=== PATIENT | male | born 1960 | race Caucasian/White ===

== ENCOUNTER 2017-07-05 11:36 | Day surgery (SDC) | payer OTHER, SELFPAY ==
[2017-06-08 08:52] VITALS: TEMP 36.6
[2017-07-03 16:09] VITALS: BMI 32.1
[2017-07-05 12:40] VITALS: BP 110/73; PULSE 74; RESP 16; TEMP 36.6; O2SAT 94
[2017-07-05] MEDS: LACTATED RINGERS 1,000 ML 200 ML IV (12:51)
--- NOTE | 2017-07-05 13:47 | SUR.PREOP ---
Addendum entered by Vicente Yeboah R.N. 07/05/17 13:56: Discharged at 1340 accompanied by . Original Note: Due to another emergent surgery attended to by Dr Borges, case cancelled. IV discontinued and patient discharged with instructions to go to surgeon's office here at the hospital to reschedule for the beginning of the coming week.
--- NOTE | 2017-07-05 13:59 | SUR.PHASEII ---
See preoperative area notes regarding discharge home.
--- NOTE | 2017-07-09 10:40 | PM.PREOP ---
Pre-operative Note Interval Note Pre-op Check: History & Physical Reviewed by Physician and Exam Performed H&P completed within 30 days and has changed as indicated here:: no change
--- NOTE | 2017-07-09 12:38 | PM.OP.1 ---
Operative Date/Time/Diagnoses - Date of procedure: 07/09/17 Time of procedure: 12:30 Pre-op diagnosis: Cholelithiasis cholecystitis Post-op diagnosis: same Procedure & Clinicians Procedure: Laparoscopic cholecystectomy Same procedure as scheduled: Yes Indications: Symptomatic gallbladder disease. Surgeon: Silver Borges Click Yes if Unassisted: Yes Anesthesia Type: General Operative Notes Findings: Mild flimsy adhesions of omentum to the gallbladder. Normal caliber ducts. Minimal inflammation. Closure Type: primary Specimen(s): other (Gallbladder) Implants & Drains: None Estimated Blood Loss (mL): 20 Procedure in detail: The patient is placed supine on the operating table and underwent general endotracheal anesthesia. He was prepped and draped in the usual fashion. Local anesthetic was infiltrated in the infraumbilical fold. Incision was made here and carried down under direct vision into the peritoneal cavity. Stay sutures of 0 Polysorb were placed in the fascia. An Augustin cannula was inserted. The abdomen was insufflated. The patient was repositioned and 3 additional ports were placed under the right costal margin. The gallbladder was identified grasped and elevated after aspirating it as it was somewhat distended with bile. The bile was green and no evidence of infection. Dissection was begun by removing the adhesions to the surface of the gallbladder. The end of the gallbladder was identified and dissection continued there. A ductal structure singular nature going directly the gallbladder was identified and from surrounding structures. Three clips were placed across the was divided leaving 2 on the patient. In a similar fashion the artery was identified clipped and divided. There was 1 other small area of tissue that could have contained a vessel. I placed 2 clips on it and divided it leaving 1 in the patient. The gallbladder is then dissected from its bed the liver using cautery. It was detached placed in a bag and removed without difficulty through the umbilical port. The right upper quadrant irrigated suctioned free of fluid and meticulous hemostasis achieved. The ports were all removed after evacuating the air. Stay sutures were tied after placing a 2 0 Maxon between them. The wounds were all irrigated and 4 0 Polysorb was used to close the skin with interrupted subcuticular stitches. Mastisol and Steri-Strips were applied. The patient was awakened and extubated and taken to recovery area in good condition. Complications: none Condition: stable Disposition: PACU Plan for aftercare: Follow-up in the office. SCOAP protocol was followed.
[2017-07-09 13:25] VITALS: BP 123/84; PULSE 76; RESP 16; TEMP 36.3; O2SAT 93
== END 2017-07-05 13:40 | disposition home or self-care (01) ==
PROVIDERS: Family Provider Family Medicine; PCP Family Medicine; Visit Provider Specialist

== ENCOUNTER 2017-07-09 08:57 | Day surgery (SDC) | payer OTHER, SELFPAY ==
--- NOTE | 2017-07-09 | PATH_ITS ---
[facility] Accession Number: [id number] . 01 Material submitted: . GALLBLADDER . 02 Diagnosis: Gallbladder, Cholecystectomy: Chronic cholecystitis with cholelithiasis. No evidence of dysplasia or malignancy. [facility]/07/12/2017 . 02 Electronically signed: . Mirela Santos MD, Pathologist NPI- [id number] . 01 Gross description: . Received in formalin, labeled 1) Gallbladder, is an intact gallbladder (length-7.2 cm, diameter-3.0 cm) with blue-green smooth and shiny serosa and a patent cystic duct. No lymph nodes are identified. The lumen contains clear watery bile and multiple dark green gritty friable calculi (1.2 x 0.6 x 0.2 cm in aggregate). The mucosa is green smooth and semi-velvety. The wall is up to 0.1 cm thick. No nodules, masses or lesions are identified. Section code: (A1) cystic duct resection margin and two serial sections from the body; (A2) two longitudinal sections from the fundus. ([id number]) /[facility] . 02 Pathologist provided ICD-10: K80.60 . 02 CPT . 142266 Performed at: 01 [facility] [address], [place], [place] [id number] MD Bhanu Julian MD Phone: [phone] Performed at: 02 [facility] [address] [place], [place] [id number] MD Sohail Baez MD Phone: [phone]
[2017-07-09 09:33] VITALS: BMI 30.4
[2017-07-09 09:45] VITALS: BP 120/80; PULSE 75; RESP 16; TEMP 36.8; O2SAT 96
[2017-07-09] MEDS: LACTATED RINGERS 1,000 ML 100 ML IV ×2 (09:46→11:43)
[2017-07-09 10:02] VITALS: BMI 30.4
[2017-07-09] MEDS: CEFAZOLIN 2 GM/100 ML FROZ.PIGGY IV (10:55)
--- NOTE | 2017-07-09 11:34 | SUR.OPER ---
Supine on padded OR bed, head on pillow, arm padded and tucked at side, legs uncrossed, safety belt at thigh, tape over blanket over lower legs .
[2017-07-09] MEDS: BUPIVACAINE 0.5% (PF) 30 ML VIAL INJ (11:45)
[2017-07-09 12:24] VITALS: BP 144/90; PULSE 85; RESP 16; TEMP 36.2
[2017-07-09 12:29] VITALS: BP 133/89; PULSE 75; RESP 14
[2017-07-09 12:34] VITALS: BP 118/80; PULSE 71; RESP 13; O2SAT 96
[2017-07-09 12:44] VITALS: BP 127/79; PULSE 74; RESP 14
[2017-07-09 13:09] VITALS: BP 126/78; PULSE 76; RESP 16; TEMP 36.6; O2SAT 96
== END 2017-07-09 13:24 | disposition home or self-care (01) ==
PROVIDERS: Family Provider Family Medicine; PCP Family Medicine; Visit Provider Specialist
PROC: 0FT44ZZ Resection of Gallbladder, Percutaneous Endoscopic Approach (ICD-10-PCS; CPT 47562; principal; 2017-07-09 10:15)
DX: K80.10 Calculus of gallbladder with chronic cholecystitis without obstruction (principal)
CPT/HCPCS: 47562; J0330; J0690; J1100; J2405; J2704; J3010

== ENCOUNTER → 2017-08-23 12:28 | Day surgery (SDC) | payer OTHER, SELFPAY ==
[2017-08-22 15:13] VITALS: BMI 32.0
[2017-08-23 12:59] VITALS: BP 114/76; PULSE 78; RESP 15; TEMP 36.1; O2SAT 96; BMI 31.0
[2017-08-23] MEDS: LACTATED RINGERS 1,000 ML 42 ML IV (13:12)
--- NOTE | 2017-08-23 14:14 | PM.HP.1 ---
History of Present Illness Date Patient Seen: 08/23/17 Time Patient Seen: 14:14 Chief complaint: [id number] BILATERAL INGUINAL HERNIA REPAIRS Narrative: Patient came in for bilateral inguinal hernia repair. He had actually called the office yesterday to schedule this but failed to inform us he had a respiratory tract infection and he had a tooth abscess presently under treatment. Patient History Medical History Bruises easily (Acute) Carpal tunnel syndrome (Acute) Cholelithiasis (Acute) Cough (Acute) Foot pain (Acute) History of UTI (Acute) History of headache (Acute) Inguinal hernia (Acute) BPH (benign prostatic hyperplasia) (Chronic) Hyperlipidemia (Chronic) Hypertension (Chronic) Impaired vision (Chronic) Migraine (Chronic) Murmur (Chronic) Nocturia (Chronic) Obese (Chronic) Obstructive sleep apnea (Chronic) PFO (patent foramen ovale) (Chronic) Ureteral obstruction (Chronic) Urinary frequency (Chronic) Urinary urgency (Chronic) Cardiomyopathy (Resolved) Gallbladder disease (Resolved) Right inguinal hernia (Resolved) Skin cancer (Resolved) Status post left heart catheterization (Resolved) Hemorrhoids (Inactive) Laryngopharyngeal reflux (LPR) (Inactive) Surgical History History of carpal tunnel release (Resolved) History of laryngoscopy (Resolved) Family & Social History Social History: household members spouse lives independently Yes Tobacco & Substance use: Smoking Status Never smoker alcohol intake current alcohol intake frequency 0-2 drinks per day Substance Use Type does not use Meds Home Medications Medication Instructions Recorded Confirmed Type carvedilol [Coreg] 25 mg PO BID #0 06/12/16 08/23/17 History eplerenone 25 mg PO #0 06/12/16 07/25/17 History atorvastatin [Lipitor] 10 mg PO HS #90 tab 02/13/17 08/23/17 Rx ramipril 10 mg PO QDAY #30 cap 04/20/17 08/23/17 Rx aspirin 81 mg PO QDAY #0 04/27/17 08/23/17 History duloxetine 60 mg capsule,delayed 60 mg PO QDAY #90 cap 06/07/17 08/23/17 Rx release esomeprazole magnesium 40 mg 40 mg PO BID #0 cap 06/08/17 08/23/17 History capsule,delayed release sumatriptan 100 mg tablet 100 mg PO Q DAY PRN #30 tab 06/11/17 08/23/17 Rx sildenafil [Viagra] 100 mg PO DAILY PRN 05/29/18 06/20/18 History Calcium 500 500 mg PO BID 07/05/17 08/23/17 History tolterodine 2 mg tablet 2 mg PO BID #180 tab 08/14/17 08/23/17 Rx Allergies Allergy/AdvReac Type Severity Reaction Status Date / Time hydrocodone [HYDROCODONE] Allergy Unknown Nausea Verified 08/23/17 12:51 ibuprofen Allergy Unknown Nausea Verified 08/23/17 12:51 Exam Vital Signs (past 8 hours): - 08/23/17 12:59 Temperature 96.9 F L Pulse Rate 78 Respiratory Rate 15 Blood Pressure 114/76 Pulse Oximetry 96 Oxygen Delivery Method Room Air Assessment & Plan Plan: Assessment/Plan Narrative: Operation is canceled. I do not want a risk putting him to sleep or seeding his mesh from his tooth abscess. When he is over these problems and he should call the office and we will reschedule him.
--- NOTE | 2017-08-23 14:22 | SUR.PREOP ---
PT SURGERY CANCELLED DUE TO CURRENT ANTIBIOTIC USE FOR TOOTH INFECTION. PT IV DC'D AND INTACT. PT TOLERATED WELL. PT WALKED OUT OF PREOP WITH IN STABLE CONDITION. PT INSTRUCTED SURGERY WILL NEED TO BE RESCHEDULED AFTER COMPLETION OF ANTIBIOTIC USE AND INFECTION IS NO LONGER PRESENT. PT INSTRUCTED TO CALL MD OFFICE TO RESCHEDULE. PT VOICED UNDERSTANDING.
== END ==
PROVIDERS: Family Provider Family Medicine; PCP Family Medicine; Visit Provider Specialist

== ENCOUNTER 2017-10-18 06:19 | Day surgery (SDC) | payer OTHER, SELFPAY ==
[2017-10-18] VITALS (7 sets, daily range): BP systolic 98–112; BP diastolic 68–81; PULSE 74–93; RESP 10–16; TEMP 36–36.9; O2SAT 92–94; BMI 30.7
[2017-10-18] MEDS: LACTATED RINGERS 1,000 ML 42 ML IV ×2 (07:27→10:07)
--- NOTE | 2017-10-18 07:45 | PM.HP.1 ---
History of Present Illness Date Patient Seen: 10/18/17 Time Patient Seen: 07:40 Chief complaint: [id number] BILATERAL INGUINAL HERNIA REPAIR Narrative: Repairs Patient here for bilateral inguinal hernia Patient History Medical History Bruises easily (Acute) Carpal tunnel syndrome (Acute) Cholelithiasis (Acute) Cough (Acute) Foot pain (Acute) History of URI (upper respiratory infection) (Acute) History of UTI (Acute) History of abscessed tooth (Acute) History of headache (Acute) Inguinal hernia (Acute) BPH (benign prostatic hyperplasia) (Chronic) Hyperlipidemia (Chronic) Hypertension (Chronic) Impaired vision (Chronic) Migraine (Chronic) Murmur (Chronic) Nocturia (Chronic) Obese (Chronic) Obstructive sleep apnea (Chronic) PFO (patent foramen ovale) (Chronic) Ureteral obstruction (Chronic) Urinary frequency (Chronic) Urinary urgency (Chronic) Cardiomyopathy (Resolved) Gallbladder disease (Resolved) Right inguinal hernia (Resolved) Skin cancer (Resolved) Status post left heart catheterization (Resolved) Hemorrhoids (Inactive) Laryngopharyngeal reflux (LPR) (Inactive) Surgical History History of laparoscopic cholecystectomy (Acute) History of carpal tunnel release (Resolved) History of laryngoscopy (Resolved) Family & Social History Family History: Reviewed 10/18/17 by Silver Borges MD Social History: household members spouse lives independently Yes Tobacco & Substance use: Smoking Status Never smoker alcohol intake current alcohol intake frequency 0-2 drinks per day Substance Use Type does not use Meds Home Medications Medication Instructions Recorded Confirmed Type carvedilol [Coreg] 25 mg PO BID #0 06/12/16 10/18/17 History eplerenone 25 mg PO #0 06/12/16 07/25/17 History atorvastatin [Lipitor] 10 mg PO HS #90 tab 02/13/17 10/18/17 Rx ramipril 10 mg PO QDAY #30 cap 04/20/17 10/18/17 Rx aspirin 81 mg PO QDAY #0 04/27/17 10/18/17 History duloxetine 60 mg capsule,delayed 60 mg PO QDAY #90 cap 06/07/17 10/18/17 Rx release esomeprazole magnesium 40 mg 40 mg PO BID #0 cap 06/08/17 10/18/17 History capsule,delayed release sumatriptan 100 mg tablet 100 mg PO Q DAY PRN #30 tab 06/11/17 10/18/17 Rx sildenafil [Viagra] 100 mg PO DAILY PRN 07/03/17 10/01/17 History Calcium 500 500 mg PO BID 07/05/17 10/01/17 History tolterodine 2 mg tablet 2 mg PO BID #180 tab 08/14/17 10/18/17 Rx Allergies Allergy/AdvReac Type Severity Reaction Status Date / Time hydrocodone [HYDROCODONE] Allergy Unknown Nausea Verified 08/23/17 12:51 ibuprofen Allergy Unknown Nausea Verified 08/23/17 12:51 Review of Systems Review of Systems All systems reviewed & are unremarkable except as noted in HPI and below Exam Vital Signs (past 8 hours): - 10/18/17 07:18 Temperature 96.8 F L Pulse Rate 74 Respiratory Rate 15 Blood Pressure 104/70 Pulse Oximetry 94 Oxygen Delivery Method Room Air Narrative Exam Narrative: Obese gentleman no apparent distress. Alert and oriented x3. Lungs are clear to auscultation no rales or rhonchi. Heart regular rate and rhythm without murmur gallop. Abdomen is soft protuberant nontender without mass. He has bilateral inguinal hernias that are reducible. Assessment & Plan Plan: Assessment/Plan Narrative: I have discussed the operations with him. Risks of bleeding, infection, injury to the nerves in the area causing chronic pain or numbness, injury to the vas deferens injury to testicular blood supply recurrence all discussed with him. He appears to understand and wishes to proceed. Also discussed postoperative restrictions.
--- NOTE | 2017-10-18 07:48 | PM.PREOP ---
Pre-operative Note Interval Note Pre-op Check: Yes History & Physical exam performed today by Physician Changes: No
[2017-10-18] MEDS: CEFAZOLIN VIAL 3 GM in SODIUM CHLORIDE 0.9% 100 ML 200 ML IV (07:59)
--- NOTE | 2017-10-18 07:59 | SUR.PREOP ---
glucose finger stick not done because orders written after patient left for or
--- NOTE | 2017-10-18 08:38 | SUR.OPER ---
Supine on padded OR bed, head on pillow, arms secured on padded arm boards at <90 degrees abduction, legs uncrossed, safety belt at thigh, tape over blanket over lower legs.
[2017-10-18] MEDS: BUPIVACAINE 0.5% (PF) VIAL 30 ML INJ (08:48)
--- NOTE | 2017-10-18 10:41 | PM.OP.1 ---
Operative Date/Time/Diagnoses Date of procedure: 10/18/17 Time of procedure: 10:20 Pre-op diagnosis: Bilateral inguinal hernia. Reducible. Post-op diagnosis: same (Direct hernias.) Procedure & Clinicians Procedure: Repair bilateral inguinal hernias with plug and patch technique Same procedure as scheduled: Yes Indications: Symptomatic hernia Surgeon: Silver Borges Click Yes if Unassisted: Yes Anesthesia Type: General Operative Notes Findings: Right-sided defect obliterated the floor and may have contained bladder. Left side was preperitoneal fat which obliterated the floor. Closure Type: primary Specimen(s): none sent Implants & Drains: Mesh Estimated Blood Loss (mL): 20 Blood products transfused: none Procedure in detail: The patient was placed supine on the operating room table and underwent general LMA anesthesia. He was prepped and draped in the usual fashion. Local anesthetic was infiltrated. A transverse incision was made overlying the internal ring on the left and carried down to the level of the external oblique. The external oblique was opened parallel with its fibers through the external ring. The cord structures were elevated. The cremaster was opened proximally and search made for an indirect sac.[none was found]. The floor was examined and was found to be[pretty much obliterated. There was obvious protrusion of fat through it and I opened this attenuated floor and reduced the fat. I placed a large plug in and tacked it into place with interrupted 0 Tycron sutures. I then chose to close the floor performing what essentially would of been a ileopubic tract repair suturing medial transversalis to the ileopubic tract and just catching the edge of the inguinal ligament. This did not appear to put any tension on the rectus. That is probably to the patient's size in any event this closed the floor over which I put a patch.]. The patch was placed across the floor and tacked at the pubic tubercle, the posterior lamella of the anterior rectus sheath, the ilioinguinal ligament, and superior lateral to the cord. The cord structures did not appear to have any tight constriction. Sutures of 0 Tycron were used to secure the mesh. The external oblique was closed with a running 3 0 Polysorb. The subcu was closed with interrupted 3 0 Polysorb. The skin was closed with a running 4 0 Polysorb subcuticular stitch. Attention was turned to the right side. A mirror incision and identical procedure was undertaken. The findings were slightly different in that there was again no indirect sac and the floor was once again attenuated an obliterated by preperitoneal structures been on this side the structure appeared to possibly be bladder and therefore I did not open it but simply reduced it. The operation was otherwise identical in occluding the use of mesh and the closure. The floor was also repaired in the same fashion as the opposite side. Once the wounds were both closed the were cleaned and Mastisol and Steri-Strips and dressing applied. The testes were pulled down and the patient was awakened and taken recovery room good condition. Complications: none Condition: stable Disposition: PACU Plan for aftercare: Patient has follow-up appointment
== END 2017-10-18 11:19 | disposition home or self-care (01) ==
PROVIDERS: Family Provider Family Medicine; PCP Family Medicine; Visit Provider Specialist
PROC: (CPT 49505; principal; 2017-10-18 07:45)
DX: K40.20 Bilateral inguinal hernia, without obstruction or gangrene, not specified as recurrent (principal); I10 Essential (primary) hypertension
CPT/HCPCS: 49505; C1781; J0690; J1100; J1170; J2405; J2704

== ENCOUNTER → 2017-11-23 08:45 | Outpatient (CLI) | payer OTHER, SELFPAY ==
[2017-11-23 09:06] LABS: Add Manual Diff / Slide Review NO; Basophils Percent Auto 1.2 % (0-2); Eosinophils Percent Auto 3.6 % (2-4); Hematocrit 41.7 % (41-53); Hemoglobin 14.4 g/dL (13.5-17.5); Lymphocytes Percent Auto 29.4 % (25-40); Mean Corpuscular HGB Conc 34.5 % (30-36); Mean Corpuscular Hemoglobin 30.5 PG (26-34); Mean Corpuscular Volume 88.3 fL (80-100); Monocytes Percent Auto 10.6 % (3-14); Neutrophils Absolute Auto 3300 /uL (3000-5900); Neutrophils Percent Auto 55.2 % (50-75); Platelet Count 155 X10^3/uL (150-400); Red Blood Cell Count 4.72 X10^6/uL (4.5-5.9); Red Cell Distribution Width 13.4 % (11.6-14.8); White Blood Cell Count 5.9 X10^3/uL (4.5-11.0)
[2017-11-23 09:27] LABS: Alanine Aminotransferase 32 IU/L (21-72); Albumin 4.1 g/dL (3.5-5.0); Albumin Globulin Ratio 1.4 (1.0-2.8); Alkaline Phosphatase 61 U/L (38-126); Aspartate Aminotransferase 19 IU/L (17-59); Bilirubin Total 0.6 mg/dL (0.2-1.3); Blood Urea Nitrogen 12 mg/dL (9-20); Calcium 8.7 mg/dL (8.4-10.2); Carbon Dioxide 33 mmol/L (22-32); Chloride 102 mmol/L (98-107); Cholesterol 115 mg/dL (140-199); Estimated Glomerular Filt Rate > 60.0 mL/min (>60); Globulin 2.9 g/dL (1.7-4.1); Glucose 104 mg/dL (70-100); HDL Cholesterol 41 mg/dL (40-60); HEMOLYSIS < 15 (0-50); LDL Cholesterol Calculated 60 mg/dL (<100); Potassium 4.2 mmol/L (3.4-5.1); Sodium 143 mmol/L (137-145); Triglycerides 71 mg/dL (35-150)
[2017-11-23 09:30] LABS: Appearance Urine UA CLEAR; Bilirubin Urine UA NEGATIVE (NEGATIVE); Color Urine UA YELLOW; Glucose Urine UA NEGATIVE (Normal); Ketones Urine UA NEGATIVE (NEGATIVE); Leukocyte Esterase Urine UA NEGATIVE (NEGATIVE); Nitrite Urine UA NEGATIVE (Negative); Occult Blood Urine UA NEGATIVE (Negative); Protein Urine UA NEGATIVE (Negative); Urobilinogen Urine UA 0.2 E.U./dL (0.2)
[2017-11-23 10:09] LABS: Thyroid Stimulating Hormone 1.41 uIU/mL (0.47-4.68)
== END ==
PROVIDERS: PCP Family Medicine; Visit Provider Family Medicine
DX: E78.2 Mixed hyperlipidemia (principal); I10 Essential (primary) hypertension; Z00.00 Encounter for general adult medical examination without abnormal findings
CPT/HCPCS: 36415; 80053; 80061; 81003; 84443; 85025

== ENCOUNTER → 2018-01-03 10:13 | Outpatient (CLI) | payer OTHER, SELFPAY ==
[2018-01-03 10:22] LABS: RBC Urine None Seen (0-5/HPF)
[2018-01-03 10:52] LABS: Bilirubin Urine UA NEGATIVE (NEGATIVE); Color Urine UA YELLOW; Glucose Urine UA NEGATIVE (Normal); Ketones Urine UA NEGATIVE (NEGATIVE); Leukocyte Esterase Urine UA TRACE (NEGATIVE); Nitrite Urine UA POSITIVE (Negative); Occult Blood Urine UA TRACE-LYSED (Negative); Protein Urine UA NEGATIVE (Negative); Specific Gravity Urine UA 1.025 (1.000-1.035); Urobilinogen Urine UA 0.2 E.U./dL (0.2)
[2018-01-03 11:05] LABS: Appearance Urine UA SL CLOUDY
[2018-01-03 11:12] LABS: Bacteria Urine Many (>30); Culture Indicated Urine Specimen Cultured; Squamous Epithelial Cell Urine None Seen; WBC Urine 10-30/HPF (0-5/HPF)
[2018-01-03 12:45] LABS: Add Manual Diff / Slide Review NO; Basophils Percent Auto 0.9 % (0-2); Eosinophils Percent Auto 2.1 % (2-4); Hematocrit 44.8 % (41-53); Hemoglobin 15.5 g/dL (13.5-17.5); Lymphocytes Percent Auto 19.4 % (25-40); Mean Corpuscular HGB Conc 34.6 % (30-36); Mean Corpuscular Hemoglobin 30.5 PG (26-34); Mean Corpuscular Volume 88.3 fL (80-100); Neutrophils Absolute Auto 6200 /uL (3000-5900); Neutrophils Percent Auto 69.6 % (50-75); Platelet Count 186 X10^3/uL (150-400); Red Blood Cell Count 5.07 X10^6/uL (4.5-5.9); Red Cell Distribution Width 13.4 % (11.6-14.8); White Blood Cell Count 8.9 X10^3/uL (4.5-11.0)
[2018-01-03 12:59] LABS: Alanine Aminotransferase 28 IU/L (21-72); Albumin 4.4 g/dL (3.5-5.0); Albumin Globulin Ratio 1.6 (1.0-2.8); Alkaline Phosphatase 62 U/L (38-126); Aspartate Aminotransferase 20 IU/L (17-59); BUN Creatinine Ratio 16.3 (6-22); Bilirubin Total 0.7 mg/dL (0.2-1.3); Blood Urea Nitrogen 13 mg/dL (9-20); Calcium 9.3 mg/dL (8.4-10.2); Carbon Dioxide 29 mmol/L (22-32); Chloride 102 mmol/L (98-107); Estimated Glomerular Filt Rate > 60.0 mL/min (>60); Globulin 2.8 g/dL (1.7-4.1); Glucose 91 mg/dL (70-100); HEMOLYSIS < 15 (0-50); Potassium 4.3 mmol/L (3.4-5.1); Sodium 145 mmol/L (137-145); Total Protein 7.2 g/dL (6.3-8.2)
== END ==
PROVIDERS: Family Provider Family Medicine; PCP Family Medicine; Visit Provider Physician Assistant
DX: R39.15 Urgency of urination (principal)
CPT/HCPCS: 36415; 80053; 81001; 85025; 87077; 87086; 87147; 87186

== ENCOUNTER → 2018-10-24 08:31 | Outpatient (CLI) | payer OTHER, SELFPAY ==
[2018-10-24 09:41] LABS: Add Manual Diff / Slide Review NO; Basophils Absolute Auto 100 /uL (0-100); Basophils Percent Auto 1.7 % (0-2); Eosinophils Absolute Auto 300 /uL (0-450); Eosinophils Percent Auto 5.6 % (2-4); Hematocrit 41.3 % (41-53); Hemoglobin 14.3 g/dL (13.5-17.5); Lymphocytes Absolute Auto 1700 /uL (1100-4500); Mean Corpuscular HGB Conc 34.7 % (30-36); Mean Corpuscular Hemoglobin 30.4 PG (26-34); Mean Corpuscular Volume 87.5 fL (80-100); Monocytes Absolute Auto 600 /uL (0-900); Monocytes Percent Auto 10.4 % (3-14); Neutrophils Absolute Auto 2800 /uL (1500-7000); Neutrophils Percent Auto 51.3 % (50-75); Platelet Count 160 X10^3/uL (150-400); Red Blood Cell Count 4.71 X10^6/uL (4.5-5.9); Red Cell Distribution Width 13.7 % (11.6-14.8); White Blood Cell Count 5.5 X10^3/uL (4.5-11.0)
[2018-10-24 09:58] LABS: Alanine Aminotransferase 22 IU/L (21-72); Albumin 3.9 g/dL (3.5-5.0); Albumin Globulin Ratio 1.4 (1.0-2.8); Alkaline Phosphatase 61 U/L (38-126); Aspartate Aminotransferase 22 IU/L (17-59); BUN Creatinine Ratio 22.9 (6-22); Bilirubin Total 0.6 mg/dL (0.2-1.3); Blood Urea Nitrogen 16 mg/dL (9-20); Calcium 8.5 mg/dL (8.4-10.2); Carbon Dioxide 25 mmol/L (22-32); Chloride 104 mmol/L (98-107); Cholesterol 116 mg/dL (140-199); Estimated Glomerular Filt Rate > 60.0 mL/min (>60); Globulin 2.8 g/dL (1.7-4.1); Glucose 101 mg/dL (70-100); HDL Cholesterol 49 mg/dL (40-60); HEMOLYSIS < 15 (0-50); LDL Cholesterol Calculated 59 mg/dL (<100); Potassium 3.9 mmol/L (3.4-5.1); Sodium 139 mmol/L (137-145); Total Protein 6.7 g/dL (6.3-8.2); Triglycerides 38 mg/dL (35-150)
[2018-10-24 10:27] LABS: Prostate Specific Antigen Scrn 1.09 ng/mL (0.1-4.0)
[2018-10-24 10:29] LABS: Thyroid Stimulating Hormone 2.24 uIU/mL (0.47-4.68)
== END ==
PROVIDERS: PCP Family Medicine; Visit Provider Family Medicine
DX: E78.2 Mixed hyperlipidemia (principal); I10 Essential (primary) hypertension; Z51.81 Encounter for therapeutic drug level monitoring; Z12.5 Encounter for screening for malignant neoplasm of prostate
CPT/HCPCS: 36415; 80053; 80061; 84443; 85025; G0103

== ENCOUNTER → 2018-11-20 14:56 | Outpatient (CLI) | payer OTHER, SELFPAY ==
--- NOTE | 2018-11-20 14:59 | DI.RAD.S_ITS ---
PROCEDURE: XR HIP W PEL IF DONE RT 2V INDICATIONS: Right Hip Pain TECHNIQUE: AP pelvis with lateral view(s) of the right hip(s). COMPARISON: None. FINDINGS: Bones: No fractures or dislocations. Mild joint space narrowing of the right hip. No avascular necrosis of the femoral head. Pelvic ring appears intact. No suspicious bony lesions. Soft tissues: The visualized bowel gas pattern is normal. No suspicious soft tissue calcifications. IMPRESSION: No fracture or dislocation. Mild osteoarthritis of the right hip. Dictated by: Koko Mendoza M.D. on 11/20/2018 at 16:42 Approved by: Koko Mendoza M.D. on 11/20/2018 at 16:43
--- NOTE | 2018-11-20 14:59 | DI.RAD.S_ITS ---
PROCEDURE: XR FINGER RT MIN 2V INDICATIONS: Arthritis/Pain TECHNIQUE: AP hand, 2 views of the second finger(s) acquired. COMPARISON: None. FINDINGS: Bones: No fractures or dislocations. No osseous erosion. No periosteal reaction. Mild osteoporosis at the first CMC joint No suspicious bony lesions. Soft tissues: No suspicious soft tissue calcifications. No radiopaque foreign body. IMPRESSION: No osseous abnormality of the index finger. Mild osteoarthritis at the first CMC joint. Dictated by: Koko Mendoza M.D. on 11/20/2018 at 16:40 Approved by: Koko Mendoza M.D. on 11/20/2018 at 16:42
--- NOTE | 2018-11-20 14:59 | DI.RAD.S_ITS ---
PROCEDURE: XR KNEE RT 3V INDICATIONS: Right Knee Pain TECHNIQUE: 3 views of the knee were acquired. COMPARISON: None. FINDINGS: Bones: No fractures or dislocations. Minimal joint space narrowing of the medial compartment. Tiny osteophytes. No suspicious bony lesions. Soft tissues: No significant joint effusion. No suspicious soft tissue calcifications. IMPRESSION: No fracture or dislocation. Mild osteoarthritis most pronounced in the medial compartment. Dictated by: Koko Mendoza M.D. on 11/20/2018 at 16:44 Approved by: Koko Mendoza M.D. on 11/20/2018 at 16:45
== END ==
PROVIDERS: PCP Family Medicine; Visit Provider Family Medicine
DX: M25.551 Pain in right hip (principal); M25.561 Pain in right knee; M79.644 Pain in right finger(s); M18.11 Unilateral primary osteoarthritis of first carpometacarpal joint, right hand; M16.11 Unilateral primary osteoarthritis, right hip; M17.11 Unilateral primary osteoarthritis, right knee
CPT/HCPCS: 73140; 73502; 73562

== ENCOUNTER 2018-12-27 07:30 | Outpatient (RCR) | payer OTHER, SELFPAY ==
--- NOTE | 2018-08-26 12:00 | PT.OIE ---
Current Diagnoses Unspecified osteoarthritis, unspecified site (08/26/18) Pain in right hip (08/26/18) Pain in right knee (08/26/18) Past Medical History (Last Reviewed 07/19/18 @ 09:30 by Angela Lynch DO) Bruises easily (Acute) Carpal tunnel syndrome (Acute) Cholelithiasis (Acute) Cough (Acute) Foot pain (Acute) History of URI (upper respiratory infection) (Acute) History of UTI (Acute) History of abscessed tooth (Acute) History of headache (Acute) Inguinal hernia (Acute) BPH (benign prostatic hyperplasia) (Chronic) Hyperlipidemia (Chronic) Hypertension (Chronic) Impaired vision (Chronic) Migraine (Chronic) Murmur (Chronic) Nocturia (Chronic) Obese (Chronic) Obstructive sleep apnea (Chronic) PFO (patent foramen ovale) (Chronic) Ureteral obstruction (Chronic) Urinary frequency (Chronic) Urinary urgency (Chronic) Cardiomyopathy (Resolved) Gallbladder disease (Resolved) Right inguinal hernia (Resolved) Skin cancer (Resolved) Status post left heart catheterization (Resolved) Hemorrhoids (Inactive) Laryngopharyngeal reflux (LPR) (Inactive) Past Surgical History (Last Reviewed 07/19/18 @ 09:30 by Angela Lynch DO) History of laparoscopic cholecystectomy (Acute) History of carpal tunnel release (Resolved) History of laryngoscopy (Resolved) Provider Visit Care Team Role Provider Type Angela Lynch DO Attending Provider Physician Primary Care Provider Specialty: Family Practice Address: [address] [place] [address], [facility] Email: [email or web address] Physical Therapy Initial Evaluation PT-OP-A Visit Information Start: 08/26/18 08:14 Freq: Status: Active Protocol: Document 08/26/18 08:15 AMB (Rec: 08/26/18 17:34 AMB [email or web address]) Out-Patient Physical Therapy Visit Information Visit Information Visit Type Initial Evaluation Visit Start Time 08:15 Visit Stop Time 09:00 Total Visit Minutes 45 Visit Number 1 PT-OP-B Current Condition Start: 08/26/18 08:14 Freq: Status: Active Protocol: Document 08/26/18 08:15 AMB (Rec: 08/26/18 17:34 AMB [email or web address]) Current Condition History of Current Condition Onset Date 3 months ago Current Complaints R hip pain, R knee pain, L thumb pain, B shoulder pain History of Current Condition Edouard reports recent onset hip pain is his main concern, but he is afraid he has arthritis all over his body. 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 It went away when he started community less, but now has returned insidiously. His right knee pain he describes as pain when he is walking when it will just hyperextend without warning. The thumb pain is with gripping things. The shoulder pain is with sleeping. 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 Prior Functional Status Baseline Function- ADL's Independent Baseline Function- Mobility Independent Current Functional Impairments (Reported) Functional Limitations- ADL's Modifies sitting to avoid hip pain, shortens step length to avoid knee pain, rolls over to avoid shoulder pain Personal Factors Other Personal Factors That May Effect history of cardiomyopathy, Therapy/Recovery carpal tunne and hernia repair surgeries PT-OP-C Subjective Start: 08/26/18 08:14 Freq: Status: Active Protocol: Document 08/26/18 08:15 AMB (Rec: 08/26/18 17:34 AMB [email or web address]) Patient Questionnaires Lower Extremity Functional Scale LEFS Score 63 LEFS Impairment 1 to 19% Impaired (Score 63-79 ) OP-PT Pain Assessment Location Right Knee Intensity 6 Scale Used Numeric (1 - 10) Description- Other trick knee hyperextends Other Pain Aggravating Factors walking down hill Right Hip Pain Location Details lateral hip Intensity 6 Scale Used Numeric (1 - 10) Other Pain Aggravating Factors scooting on a bench, car transfers PT-OP-J Posture/Palpation/Skin Start: 08/26/18 08:14 Freq: Status: Active Protocol: Document 08/26/18 08:15 AMB (Rec: 08/26/18 17:40 AMB [email or web address]) Palpation Assessment Location One Palpation Location hip Palpation Details denies tenderness to hip flexor, tender bilaterally at IT band but not more so on one side, tender at greater trochater with palpation, denies tenderness with palpation throughout knees PT-OP-K Range of Motion Start: 08/26/18 08:14 Freq: Status: Active Protocol: Document 08/26/18 08:15 AMB (Rec: 08/26/18 17:40 AMB [email or web address]) Hip Goniometric Range of Motion Hip Right Passive Flexion w/Knee Flexed 90 Internal Rotation 4 External Rotation 35 Left Passive Flexion w/Knee Flexed 100 Internal Rotation 15 External Rotation 35 PT-OP-L Special Tests Start: 08/26/18 17:40 Freq: Status: Active Protocol: Document 08/26/18 08:15 AMB (Rec: 08/26/18 17:41 AMB [email or web address]) Special Tests Hip Special Tests Scour Test Test Results positive on R PT-OP-M Strength Start: 08/26/18 08:14 Freq: Status: Active Protocol: Document 08/26/18 08:15 AMB (Rec: 08/26/18 17:40 AMB [email or web address]) Hip Strength Hip Manual Muscle Testing Right Flexion (L2) 5 Normal Extension (S1) 5 Normal Abduction 4+ Good+ External Rotation 4+ Good+ Internal Rotation 4+ Good+ Left Flexion (L2) 4+ Good+ Extension (S1) 4+ Good+ Abduction 4+ Good+ External Rotation 4+ Good+ Internal Rotation 4+ Good+ Knee Strength Knee Manual Muscle Testing Right Extension (L3) 4 Good Left Extension (L3) 5 Normal PT-OP-Q Treatments Start: 08/26/18 08:14 Freq: Status: Active Protocol: Document 08/26/18 08:15 AMB (Rec: 08/27/18 07:11 AMB [email or web address]) Therapeutic Exercises Supine Exercises 2 Supine Exercise Name chapis pose Reps/Minutes 30x2 3 Supine Exercise Name hamstring stretch Reps/Minutes 30x2 1 Supine Exercise Name piriformis stretch Reps/Minutes 30x2 PT-OP-T Assessment and Plan Start: 08/26/18 08:14 Freq: Status: Active Protocol: Document 08/26/18 08:15 AMB (Rec: 08/27/18 07:11 AMB [email or web address]) Physical Therapy Assessment Goals Two Impairment LE pain Short Term Goal (STG) Edouard will walk for 1 mile over hilly terrain without knee pain. STG Duration 4 weeks Automotive Parts Specialist Goal (LTG) Edouard will perform a car transfer without hip pain. LTG Duration 8 weeks One Impairment hip ROM Short Term Goal (STG) Edouard will increase is hip internal rotation PROM to 10 degrees. STG Duration 4 weeks Residential Goal (LTG) Edouard will increase his hip flexion PROM to 100 degrees without hip pain. LTG Duration 8 weeks Assessment Summary Assessment Edouard attends physical therapy with concerns about his right hip, right knee, left thumb, and bilateral shoulders. His main concern is his hip. He does have reduced internal rotation and flexion PROM on the left but fortunately his pain is not yet radiating into his groin. In regards to his knee he did not have signs consistent with meniscus pathology, but more of a hyperextension/quad weakness, further testing on the knee will be continued as time allows. He will benefit from stretching, joint mobilization , and body mechanics instruction for his R LE. Physical Therapy Plan Frequency and Duration Frequency of Treatment 2x/Week Duration of Treatment 8 weeks Plan of Care Start Date 08/26/18 Plan of Care End Date 10/21/18 Therapeutic Interventions Therapeutic Interventions Aquatic Therapy Home Exercise Program Joint Mobilizations Manual Therapy Neuromuscular Re-education Self-Care/Home Management Therapeutic Activities Therapeutic Exercises Modalities Cold Pack/Ice Massage Electric Stimulation Hot Packs Next Visit Focus/Plan Next Note Type Treatment Note
--- NOTE | 2018-08-26 12:00 | PT.OPPOC ---
Addendum entered and electronically signed by Mireya Kellogg, DANIEL 11/17/19 15:20: Resending plan of care Original Note: Current Diagnoses Unspecified osteoarthritis, unspecified site (08/26/18) Pain in right hip (08/26/18) Pain in right knee (08/26/18) Provider Visit Care Team Role Provider Type Angela Lynch DO Attending Provider Physician Primary Care Provider Specialty: Family Practice Address: [address] [place] [address], [facility] Email: [email or web address] Plan Of Care PT-OP-T Assessment and Plan Start: 08/26/18 08:14 Freq: Status: Active Protocol: Document 08/26/18 08:15 AMB (Rec: 08/27/18 07:11 AMB [email or web address]) Physical Therapy Assessment Goals Two Impairment LE pain Short Term Goal (STG) Edouard will walk for 1 mile over hilly terrain without knee pain. 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 LTG Duration 8 weeks One Impairment hip ROM Short Term Goal (STG) Edouard will increase is hip internal rotation PROM to 10 degrees. STG Duration 4 weeks Alf Goal (LTG) Edouard will increase his hip flexion PROM to 100 degrees without hip pain. LTG Duration 8 weeks Assessment Summary Assessment Edouard attends physical therapy with concerns about his right hip, right knee, left thumb, and bilateral shoulders. His main concern is his hip. He does have reduced internal rotation and flexion PROM on the left but fortunately his pain is not yet radiating into his groin. In regards to his knee he did not have signs consistent with meniscus pathology, but more of a hyperextension/quad weakness, further testing on the knee will be continued as time allows. He will benefit from stretching, joint mobilization , and body mechanics instruction for his R LE. Physical Therapy Plan Frequency and Duration Frequency of Treatment 2x/Week Duration of Treatment 8 weeks Plan of Care Start Date 08/26/18 Plan of Care End Date 10/21/18 Therapeutic Interventions Therapeutic Interventions Aquatic Therapy Home Exercise Program Joint Mobilizations Manual Therapy Neuromuscular Re-education Self-Care/Home Management Therapeutic Activities Therapeutic Exercises Modalities Cold Pack/Ice Massage Electric Stimulation Hot Packs Next Visit Focus/Plan Next Note Type Treatment Note Plan of Care Dates Plan of Care Start Date 08/26/18 Plan of Care End Date 10/21/18 Please Sign and Return: I have reviewed this Plan of Care and certify that the skilled therapy services above are required to meet the patient?s needs. Physician Signature Date Printed Name and Credentials Clinical Instructor Signature Printed Name and Credentials
--- NOTE | 2018-08-28 10:30 | PT.OTN ---
Current Diagnoses Unspecified osteoarthritis, unspecified site (08/28/18) Pain in right hip (08/28/18) Pain in right knee (08/28/18) Physical Therapy Treatment Note PT-OP-A Visit Information Start: 08/26/18 08:14 Freq: Status: Active Protocol: Document 08/28/18 10:30 AMB (Rec: 08/28/18 16:21 AMB [email or web address]) Out-Patient Physical Therapy Visit Information Visit Information Visit Type Treatment Note Visit Start Time 10:30 Visit Stop Time 11:15 Total Visit Minutes 45 Visit Number 2 PT-OP-B Current Condition Start: 08/26/18 08:14 Freq: Status: Active Protocol: Document 08/26/18 08:15 AMB (Rec: 08/26/18 17:34 AMB [email or web address]) Current Condition History of Current Condition Onset Date 3 months ago Current Complaints R hip pain, R knee pain, L thumb pain, B shoulder pain History of Current Condition Edouard reports recent onset hip pain is his main concern, but he is afraid he has arthritis all over his body. 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 It went away when he started community less, but now has returned insidiously. His right knee pain he describes as pain when he is walking when it will just hyperextend without warning. The thumb pain is with gripping things. The shoulder pain is with sleeping. 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 Prior Functional Status Baseline Function- ADL's Independent Baseline Function- Mobility Independent Current Functional Impairments (Reported) Functional Limitations- ADL's Modifies sitting to avoid hip pain, shortens step length to avoid knee pain, rolls over to avoid shoulder pain Personal Factors Other Personal Factors That May Effect history of cardiomyopathy, Therapy/Recovery carpal tunne and hernia repair surgeries PT-OP-C Subjective Start: 08/26/18 08:14 Freq: Status: Active Protocol: Document 08/28/18 10:30 AMB (Rec: 08/28/18 16:21 AMB [email or web address]) OP-PT Subjective Patient Comments Patient Comments Pt is doing well, exercises are easy, going on a business trip to the next week. PT-OP-J Posture/Palpation/Skin Start: 08/26/18 08:14 Freq: Status: Active Protocol: Document 08/26/18 08:15 AMB (Rec: 08/26/18 17:40 AMB [email or web address]) Palpation Assessment Location One Palpation Location hip Palpation Details denies tenderness to hip flexor, tender bilaterally at IT band but not more so on one side, tender at greater trochater with palpation, denies tenderness with palpation throughout knees PT-OP-K Range of Motion Start: 08/26/18 08:14 Freq: Status: Active Protocol: Document 08/26/18 08:15 AMB (Rec: 08/26/18 17:40 AMB [email or web address]) Hip Goniometric Range of Motion Hip Right Passive Flexion w/Knee Flexed 90 Internal Rotation 4 External Rotation 35 Left Passive Flexion w/Knee Flexed 100 Internal Rotation 15 External Rotation 35 PT-OP-L Special Tests Start: 08/26/18 17:40 Freq: Status: Active Protocol: Document 08/26/18 08:15 AMB (Rec: 08/26/18 17:41 AMB [email or web address]) Special Tests Hip Special Tests Scour Test Test Results positive on R PT-OP-M Strength Start: 08/26/18 08:14 Freq: Status: Active Protocol: Document 08/26/18 08:15 AMB (Rec: 08/26/18 17:40 AMB [email or web address]) Hip Strength Hip Manual Muscle Testing Right Flexion (L2) 5 Normal Extension (S1) 5 Normal Abduction 4+ Good+ External Rotation 4+ Good+ Internal Rotation 4+ Good+ Left Flexion (L2) 4+ Good+ Extension (S1) 4+ Good+ Abduction 4+ Good+ External Rotation 4+ Good+ Internal Rotation 4+ Good+ Knee Strength Knee Manual Muscle Testing Right Extension (L3) 4 Good Left Extension (L3) 5 Normal PT-OP-Q Treatments Start: 08/26/18 08:14 Freq: Status: Active Protocol: Document 08/28/18 10:30 AMB (Rec: 08/29/18 16:34 AMB [email or web address]) Gym Equipment Cable Column (Body Solid) Leg Extension Details 60# x 10 on L Reps/Time able to do on R too but harder Therapeutic Exercises Supine Exercises 4 Supine Exercise Name hip flexor stretch Reps/Minutes 30x2 2 Supine Exercise Name chapis pose Reps/Minutes 30x2 3 Supine Exercise Name hamstring stretch Reps/Minutes 30x2 Comments added IT band stretch 1 Supine Exercise Name piriformis stretch Reps/Minutes 30x2 Prone Exercises 1 Prone Exercise Name hip IR AROM Reps/Minutes 10 Standing Exercises 1 Standing Exercise Name wall squat Reps/Minutes 5x10 Manual Therapy Treatment Manual Techniques 1 Type contract relax Body Location hip IR Body Position Prone Reps/Duration 10x2 Comments overpressure afterwards PT-OP-T Assessment and Plan Start: 08/26/18 08:14 Freq: Status: Active Protocol: Document 08/28/18 10:30 AMB (Rec: 08/29/18 16:34 AMB [email or web address]) Physical Therapy Assessment Assessment Summary Assessment Edouard toelrated all exercises without discomfort. Was able to scoot on PT table after manual/exercises without discomfort. Physical Therapy Plan Next Visit Focus/Plan Next Note Type Treatment Note Next Visit Plan Follow up on hip IR ROM, quad strength
--- NOTE | 2018-09-30 16:26 | PT.OTN ---
Current Diagnoses Unspecified osteoarthritis, unspecified site (09/30/18) Pain in right hip (09/30/18) Pain in right knee (09/30/18) Physical Therapy Treatment Note PT-OP-A Visit Information Start: 08/26/18 08:14 Freq: Status: Active Protocol: Document 09/30/18 11:15 AMB (Rec: 09/30/18 16:25 AMB [email or web address]) Out-Patient Physical Therapy Visit Information Visit Information Visit Type Treatment Note Visit Start Time 11:20 Visit Stop Time 12:00 Total Visit Minutes 40 Visit Number 3 PT-OP-B Current Condition Start: 08/26/18 08:14 Freq: Status: Active Protocol: Document 08/26/18 08:15 AMB (Rec: 08/26/18 17:34 AMB [email or web address]) Current Condition History of Current Condition Onset Date 3 months ago Current Complaints R hip pain, R knee pain, L thumb pain, B shoulder pain History of Current Condition Edouard reports recent onset hip pain is his main concern, but he is afraid he has arthritis all over his body. 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 It went away when he started community less, but now has returned insidiously. His right knee pain he describes as pain when he is walking when it will just hyperextend without warning. The thumb pain is with gripping things. The shoulder pain is with sleeping. 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 Prior Functional Status Baseline Function- ADL's Independent Baseline Function- Mobility Independent Current Functional Impairments (Reported) Functional Limitations- ADL's Modifies sitting to avoid hip pain, shortens step length to avoid knee pain, rolls over to avoid shoulder pain Personal Factors Other Personal Factors That May Effect history of cardiomyopathy, Therapy/Recovery carpal tunne and hernia repair surgeries PT-OP-C Subjective Start: 08/26/18 08:14 Freq: Status: Active Protocol: Document 09/30/18 11:15 AMB (Rec: 09/30/18 16:25 AMB [email or web address]) OP-PT Subjective Patient Comments Patient Comments Pt is doing a lot better, although he is continuing to take his ibuprofen. He is not having hip pain with scooting , but did notice that lifting the right leg up was painful and weak. PT-OP-J Posture/Palpation/Skin Start: 08/26/18 08:14 Freq: Status: Active Protocol: Document 08/26/18 08:15 AMB (Rec: 08/26/18 17:40 AMB [email or web address]) Palpation Assessment Location One Palpation Location hip Palpation Details denies tenderness to hip flexor, tender bilaterally at IT band but not more so on one side, tender at greater trochater with palpation, denies tenderness with palpation throughout knees PT-OP-K Range of Motion Start: 08/26/18 08:14 Freq: Status: Active Protocol: Document 08/26/18 08:15 AMB (Rec: 08/26/18 17:40 AMB [email or web address]) Hip Goniometric Range of Motion Hip Right Passive Flexion w/Knee Flexed 90 Internal Rotation 4 External Rotation 35 Left Passive Flexion w/Knee Flexed 100 Internal Rotation 15 External Rotation 35 PT-OP-L Special Tests Start: 08/26/18 17:40 Freq: Status: Active Protocol: Document 08/26/18 08:15 AMB (Rec: 08/26/18 17:41 AMB [email or web address]) Special Tests Hip Special Tests Scour Test Test Results positive on R PT-OP-M Strength Start: 08/26/18 08:14 Freq: Status: Active Protocol: Document 08/26/18 08:15 AMB (Rec: 08/26/18 17:40 AMB [email or web address]) Hip Strength Hip Manual Muscle Testing Right Flexion (L2) 5 Normal Extension (S1) 5 Normal Abduction 4+ Good+ External Rotation 4+ Good+ Internal Rotation 4+ Good+ Left Flexion (L2) 4+ Good+ Extension (S1) 4+ Good+ Abduction 4+ Good+ External Rotation 4+ Good+ Internal Rotation 4+ Good+ Knee Strength Knee Manual Muscle Testing Right Extension (L3) 4 Good Left Extension (L3) 5 Normal PT-OP-Q Treatments Start: 08/26/18 08:14 Freq: Status: Active Protocol: Document 09/30/18 11:15 AMB (Rec: 09/30/18 16:25 AMB [email or web address]) Therapeutic Exercises Supine Exercises 6 Supine Exercise Name supine march Reps/Minutes 2x10 5 Supine Exercise Name SLR Reps/Minutes 2x10 Comments difficult 4 Supine Exercise Name hip flexor stretch Reps/Minutes 30x2 2 Supine Exercise Name chapis pose Reps/Minutes 30x2 3 Supine Exercise Name hamstring stretch Reps/Minutes 30x2 Comments added IT band stretch Sitting Exercises 1 Sitting Exercise Name 65cm ball hip flex march Reps/Minutes 3x10 Standing Exercises 2 Standing Exercise Name hip flexion Resistance #3 t band Reps/Minutes 2x10 PT-OP-T Assessment and Plan Start: 08/26/18 08:14 Freq: Status: Active Protocol: Document 09/30/18 11:15 AMB (Rec: 09/30/18 16:25 AMB [email or web address]) Physical Therapy Assessment Assessment Summary Assessment Pt with significant weakness in R hip flexor in comparison to the L today so instructed in multiple ways to strengthen . Pt planning to walk more so follow up on pain levels s/p increased activity. Physical Therapy Plan Next Visit Focus/Plan Next Note Type Treatment Note Next Visit Plan Follow up on hip IR ROM, quad strength. hip flexion strength
--- NOTE | 2018-10-02 12:47 | PT.OTN ---
Current Diagnoses Unspecified osteoarthritis, unspecified site (10/02/18) Pain in right hip (10/02/18) Pain in right knee (10/02/18) Physical Therapy Treatment Note PT-OP-A Visit Information Start: 08/26/18 08:14 Freq: Status: Active Protocol: Document 10/02/18 11:15 AMB (Rec: 10/02/18 16:11 AMB [email or web address]) Out-Patient Physical Therapy Visit Information Visit Information Visit Type Treatment Note Visit Start Time 11:20 Visit Stop Time 12:00 Total Visit Minutes 40 Visit Number 4 PT-OP-B Current Condition Start: 08/26/18 08:14 Freq: Status: Active Protocol: Document 08/26/18 08:15 AMB (Rec: 08/26/18 17:34 AMB [email or web address]) Current Condition History of Current Condition Onset Date 3 months ago Current Complaints R hip pain, R knee pain, L thumb pain, B shoulder pain History of Current Condition Edouard reports recent onset hip pain is his main concern, but he is afraid he has arthritis all over his body. 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 It went away when he started community less, but now has returned insidiously. His right knee pain he describes as pain when he is walking when it will just hyperextend without warning. The thumb pain is with gripping things. The shoulder pain is with sleeping. 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 Prior Functional Status Baseline Function- ADL's Independent Baseline Function- Mobility Independent Current Functional Impairments (Reported) Functional Limitations- ADL's Modifies sitting to avoid hip pain, shortens step length to avoid knee pain, rolls over to avoid shoulder pain Personal Factors Other Personal Factors That May Effect history of cardiomyopathy, Therapy/Recovery carpal tunne and hernia repair surgeries PT-OP-C Subjective Start: 08/26/18 08:14 Freq: Status: Active Protocol: Document 10/02/18 11:15 AMB (Rec: 10/02/18 16:11 AMB [email or web address]) OP-PT Subjective Patient Comments Patient Comments Pt is doing well with his added walking, he is definitely more sore on the R than the L, but hasn't noticed as much joint pain. PT-OP-J Posture/Palpation/Skin Start: 08/26/18 08:14 Freq: Status: Active Protocol: Document 08/26/18 08:15 AMB (Rec: 08/26/18 17:40 AMB [email or web address]) Palpation Assessment Location One Palpation Location hip Palpation Details denies tenderness to hip flexor, tender bilaterally at IT band but not more so on one side, tender at greater trochater with palpation, denies tenderness with palpation throughout knees PT-OP-K Range of Motion Start: 08/26/18 08:14 Freq: Status: Active Protocol: Document 08/26/18 08:15 AMB (Rec: 08/26/18 17:40 AMB [email or web address]) Hip Goniometric Range of Motion Hip Right Passive Flexion w/Knee Flexed 90 Internal Rotation 4 External Rotation 35 Left Passive Flexion w/Knee Flexed 100 Internal Rotation 15 External Rotation 35 PT-OP-L Special Tests Start: 08/26/18 17:40 Freq: Status: Active Protocol: Document 08/26/18 08:15 AMB (Rec: 08/26/18 17:41 AMB [email or web address]) Special Tests Hip Special Tests Scour Test Test Results positive on R PT-OP-M Strength Start: 08/26/18 08:14 Freq: Status: Active Protocol: Document 08/26/18 08:15 AMB (Rec: 08/26/18 17:40 AMB [email or web address]) Hip Strength Hip Manual Muscle Testing Right Flexion (L2) 5 Normal Extension (S1) 5 Normal Abduction 4+ Good+ External Rotation 4+ Good+ Internal Rotation 4+ Good+ Left Flexion (L2) 4+ Good+ Extension (S1) 4+ Good+ Abduction 4+ Good+ External Rotation 4+ Good+ Internal Rotation 4+ Good+ Knee Strength Knee Manual Muscle Testing Right Extension (L3) 4 Good Left Extension (L3) 5 Normal PT-OP-Q Treatments Start: 08/26/18 08:14 Freq: Status: Active Protocol: Document 10/02/18 11:15 AMB (Rec: 10/03/18 12:47 AMB [email or web address]) Therapeutic Exercises Supine Exercises 5 Supine Exercise Name SLR Reps/Minutes 2x10 Comments difficult 4 Supine Exercise Name hip flexor stretch Reps/Minutes 30x2 2 Supine Exercise Name chapis pose Reps/Minutes 30x2 3 Supine Exercise Name hamstring stretch Reps/Minutes 30x2 Comments added IT band stretch 1 Supine Exercise Name piriformis stretch Reps/Minutes 30x2 Sidelying Exercises 2 Sidelying Exercise Name clamshell Resistance #2 Reps/Minutes 2x10 1 Sidelying Exercise Name hip abduction Reps/Minutes 1x12 PT-OP-T Assessment and Plan Start: 08/26/18 08:14 Freq: Status: Active Protocol: Document 10/02/18 11:15 AMB (Rec: 10/03/18 12:47 AMB [email or web address]) Physical Therapy Assessment Assessment Summary Assessment Jamie is doing well with his pain. He continues to have hip weakness on the R, but is motivated and doing his HEP. Physical Therapy Plan Next Visit Focus/Plan Next Note Type Treatment Note Next Visit Plan Follow up on hip IR ROM, quad strength. hip flexion strength
--- NOTE | 2018-10-11 12:00 | PT.OTN ---
Current Diagnoses Unspecified osteoarthritis, unspecified site (10/11/18) Pain in right hip (10/11/18) Pain in right knee (10/11/18) Physical Therapy Treatment Note PT-OP-A Visit Information Start: 08/26/18 08:14 Freq: Status: Active Protocol: Document 10/11/18 10:15 AMB (Rec: 10/11/18 10:52 AMB [id number]) Out-Patient Physical Therapy Visit Information Visit Information Visit Type Treatment Note Visit Start Time 10:15 Visit Stop Time 11:00 Total Visit Minutes 45 Visit Number 5 PT-OP-B Current Condition Start: 08/26/18 08:14 Freq: Status: Active Protocol: Document 08/26/18 08:15 AMB (Rec: 08/26/18 17:34 AMB [email or web address]) Current Condition History of Current Condition Onset Date 3 months ago Current Complaints R hip pain, R knee pain, L thumb pain, B shoulder pain History of Current Condition Edouard reports recent onset hip pain is his main concern, but he is afraid he has arthritis all over his body. 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 It went away when he started community less, but now has returned insidiously. His right knee pain he describes as pain when he is walking when it will just hyperextend without warning. The thumb pain is with gripping things. The shoulder pain is with sleeping. 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 Prior Functional Status Baseline Function- ADL's Independent Baseline Function- Mobility Independent Current Functional Impairments (Reported) Functional Limitations- ADL's Modifies sitting to avoid hip pain, shortens step length to avoid knee pain, rolls over to avoid shoulder pain Personal Factors Other Personal Factors That May Effect history of cardiomyopathy, Therapy/Recovery carpal tunne and hernia repair surgeries PT-OP-C Subjective Start: 08/26/18 08:14 Freq: Status: Active Protocol: Document 10/11/18 10:15 AMB (Rec: 10/11/18 10:52 AMB [email or web address]) OP-PT Subjective Patient Comments Patient Comments Pt feels like he is doing well PT-OP-J Posture/Palpation/Skin Start: 08/26/18 08:14 Freq: Status: Active Protocol: Document 08/26/18 08:15 AMB (Rec: 08/26/18 17:40 AMB [email or web address]) Palpation Assessment Location One Palpation Location hip Palpation Details denies tenderness to hip flexor, tender bilaterally at IT band but not more so on one side, tender at greater trochater with palpation, denies tenderness with palpation throughout knees PT-OP-K Range of Motion Start: 08/26/18 08:14 Freq: Status: Active Protocol: Document 08/26/18 08:15 AMB (Rec: 08/26/18 17:40 AMB [email or web address]) Hip Goniometric Range of Motion Hip Right Passive Flexion w/Knee Flexed 90 Internal Rotation 4 External Rotation 35 Left Passive Flexion w/Knee Flexed 100 Internal Rotation 15 External Rotation 35 PT-OP-L Special Tests Start: 08/26/18 17:40 Freq: Status: Active Protocol: Document 08/26/18 08:15 AMB (Rec: 08/26/18 17:41 AMB [email or web address]) Special Tests Hip Special Tests Scour Test Test Results positive on R PT-OP-M Strength Start: 08/26/18 08:14 Freq: Status: Active Protocol: Document 08/26/18 08:15 AMB (Rec: 08/26/18 17:40 AMB [email or web address]) Hip Strength Hip Manual Muscle Testing Right Flexion (L2) 5 Normal Extension (S1) 5 Normal Abduction 4+ Good+ External Rotation 4+ Good+ Internal Rotation 4+ Good+ Left Flexion (L2) 4+ Good+ Extension (S1) 4+ Good+ Abduction 4+ Good+ External Rotation 4+ Good+ Internal Rotation 4+ Good+ Knee Strength Knee Manual Muscle Testing Right Extension (L3) 4 Good Left Extension (L3) 5 Normal PT-OP-Q Treatments Start: 08/26/18 08:14 Freq: Status: Active Protocol: Document 10/11/18 10:15 AMB (Rec: 10/14/18 07:15 AMB [email or web address]) Therapeutic Exercises Supine Exercises 7 Supine Exercise Name bridge Reps/Minutes 2x10 5 Supine Exercise Name SLR Reps/Minutes 2x10 4 Supine Exercise Name hip flexor stretch Reps/Minutes 30x2 3 Supine Exercise Name hamstring stretch Reps/Minutes 30x2 Comments added IT band stretch 1 Supine Exercise Name piriformis stretch Reps/Minutes 30x2 Sidelying Exercises 1 Sidelying Exercise Name hip abduction Reps/Minutes 2x12 PT-OP-T Assessment and Plan Start: 08/26/18 08:14 Freq: Status: Active Protocol: Document 10/11/18 10:15 AMB (Rec: 10/14/18 07:15 AMB [email or web address]) Physical Therapy Assessment Goals Two Impairment LE pain Short Term Goal (STG) Edouard will walk for 1 mile over hilly terrain without knee pain. STG Duration 4 weeks Fpc Goal (LTG) Edouard will perform a car transfer without hip pain. LTG Duration MET One Impairment hip ROM Short Term Goal (STG) Edouard will increase is hip internal rotation PROM to 10 degrees. 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 LTG Duration 8 weeks Assessment Summary Assessment Pt can still feel something in his hip but not nearly as intense of pain as at beginning of PT. Since he is traveling for work the next few weeks, pt to continue HEP and then recheck to make sure pain is continuing to decrease . Physical Therapy Plan Next Visit Focus/Plan Next Note Type Treatment Note Next Visit Plan Possible d/c if pt is still doing well at next visit
--- NOTE | 2018-11-12 12:00 | PT.OTN ---
Current Diagnoses Unspecified osteoarthritis, unspecified site (11/12/18) Pain in right hip (11/12/18) Pain in right knee (11/12/18) Physical Therapy Treatment Note PT-OP-A Visit Information Start: 08/26/18 08:14 Freq: Status: Active Protocol: Document 11/12/18 09:00 AMB (Rec: 11/13/18 12:02 AMB [email or web address]) Out-Patient Physical Therapy Visit Information Visit Information Visit Type Progress Note Visit Start Time 10:15 Visit Stop Time 11:00 Total Visit Minutes 45 Visit Number 6 PT-OP-B Current Condition Start: 08/26/18 08:14 Freq: Status: Active Protocol: Document 08/26/18 08:15 AMB (Rec: 08/26/18 17:34 AMB [email or web address]) Current Condition History of Current Condition Onset Date 3 months ago Current Complaints R hip pain, R knee pain, L thumb pain, B shoulder pain History of Current Condition Edouard reports recent onset hip pain is his main concern, but he is afraid he has arthritis all over his body. 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 It went away when he started community less, but now has returned insidiously. His right knee pain he describes as pain when he is walking when it will just hyperextend without warning. The thumb pain is with gripping things. The shoulder pain is with sleeping. 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 Prior Functional Status Baseline Function- ADL's Independent Baseline Function- Mobility Independent Current Functional Impairments (Reported) Functional Limitations- ADL's Modifies sitting to avoid hip pain, shortens step length to avoid knee pain, rolls over to avoid shoulder pain Personal Factors Other Personal Factors That May Effect history of cardiomyopathy, Therapy/Recovery carpal tunne and hernia repair surgeries PT-OP-C Subjective Start: 08/26/18 08:14 Freq: Status: Active Protocol: Document 11/12/18 09:00 AMB (Rec: 11/13/18 12:02 AMB [email or web address]) OP-PT Subjective Patient Comments Patient Comments Edouard returns from a business trip with a bit of an increase in his hip pain. It is not nearly as bad as when he first came to PT, but it came back because he was having to stand /walk for 12 hours for work multiple days in a row. He is hoping to start a gym exercise program and is concerned about return to exercise without flaring his pain. PT-OP-J Posture/Palpation/Skin Start: 08/26/18 08:14 Freq: Status: Active Protocol: Document 08/26/18 08:15 AMB (Rec: 08/26/18 17:40 AMB [email or web address]) Palpation Assessment Location One Palpation Location hip Palpation Details denies tenderness to hip flexor, tender bilaterally at IT band but not more so on one side, tender at greater trochater with palpation, denies tenderness with palpation throughout knees PT-OP-K Range of Motion Start: 08/26/18 08:14 Freq: Status: Active Protocol: Document 08/26/18 08:15 AMB (Rec: 08/26/18 17:40 AMB [email or web address]) Hip Goniometric Range of Motion Hip Right Passive Flexion w/Knee Flexed 90 Internal Rotation 4 External Rotation 35 Left Passive Flexion w/Knee Flexed 100 Internal Rotation 15 External Rotation 35 PT-OP-L Special Tests Start: 08/26/18 17:40 Freq: Status: Active Protocol: Document 08/26/18 08:15 AMB (Rec: 08/26/18 17:41 AMB [email or web address]) Special Tests Hip Special Tests Scour Test Test Results positive on R PT-OP-M Strength Start: 08/26/18 08:14 Freq: Status: Active Protocol: Document 08/26/18 08:15 AMB (Rec: 08/26/18 17:40 AMB [email or web address]) Hip Strength Hip Manual Muscle Testing Right Flexion (L2) 5 Normal Extension (S1) 5 Normal Abduction 4+ Good+ External Rotation 4+ Good+ Internal Rotation 4+ Good+ Left Flexion (L2) 4+ Good+ Extension (S1) 4+ Good+ Abduction 4+ Good+ External Rotation 4+ Good+ Internal Rotation 4+ Good+ Knee Strength Knee Manual Muscle Testing Right Extension (L3) 4 Good Left Extension (L3) 5 Normal PT-OP-Q Treatments Start: 08/26/18 08:14 Freq: Status: Active Protocol: Document 11/12/18 09:00 AMB (Rec: 11/14/18 08:48 AMB [email or web address]) Therapeutic Exercises Supine Exercises 9 Supine Exercise Name SKTC Reps/Minutes 5 8 Supine Exercise Name supine IT band stretch Reps/Minutes 30x2 7 Supine Exercise Name bridge Reps/Minutes 2x10 6 Supine Exercise Name LTR on 65cm ball Comments with core stabilization 4 Supine Exercise Name hip flexor stretch Reps/Minutes 30x2 2 Supine Exercise Name chapis pose Reps/Minutes 30x2 Standing Exercises 2 Standing Exercise Name squats Reps/Minutes 2x10 Comments vc form 1 Standing Exercise Name lunges Reps/Minutes 2x10 Comments vc form Manual Therapy Treatment Manual Techniques 2 Type MFR Body Location hip flexor Body Position Supine 1 Type hip IR Body Position Prone PT-OP-T Assessment and Plan Start: 08/26/18 08:14 Freq: Status: Active Protocol: Document 11/12/18 09:00 AMB (Rec: 11/14/18 08:48 AMB [email or web address]) Physical Therapy Assessment Goals Two Impairment LE pain Short Term Goal (STG) Edouard will walk for 1 mile over hilly terrain without knee pain. 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 LTG Duration MET One Impairment hip ROM Short Term Goal (STG) Edouard will increase is hip internal rotation PROM to 10 degrees. 11/12: progress made but not yet met. STG Duration 4 weeks [facility] Goal (LTG) Edouard will increase his hip flexion PROM to 100 degrees without hip pain. met intermittently when pt not having a painful day. LTG Duration 8 weeks Assessment Summary Assessment Edouard has imporved considerably , but did have a flare up of symptoms with traveling and standing/walking for 12 hours a day. His hip pain has not returned to the level that it was before PT started, but he is concerned that it will increase with increased activity and returning to a gym exercise program. Therefore, Edouard will benefit from continued PT to develop a safe and effective exercise program that does not flare his pain symptoms. Physical Therapy Plan Frequency and Duration Frequency of Treatment Every Other Week Duration of Treatment 8 weeks Plan of Care Start Date 11/12/18 Plan of Care End Date 01/07/19 Therapeutic Interventions Therapeutic Interventions Aquatic Therapy,Home Exercise Program,Joint Mobilizations, Manual Therapy,Neuromuscular Re-education,Self-Care/Home Management,Therapeutic Activities,Therapeutic Exercises Modalities Cold Pack/Ice Massage,Electric Stimulation,Hot Packs Next Visit Focus/Plan Next Note Type Treatment Note Next Visit Plan Follow up on gym program
--- NOTE | 2018-12-04 16:06 | PT.OTN ---
Current Diagnoses Unspecified osteoarthritis, unspecified site (12/04/18) Pain in right hip (12/04/18) Pain in right knee (12/04/18) Physical Therapy Treatment Note PT-OP-A Visit Information Start: 08/26/18 08:14 Freq: Status: Active Protocol: Document 12/04/18 09:45 AMB (Rec: 12/04/18 16:03 AMB [email or web address]) Out-Patient Physical Therapy Visit Information Visit Information Visit Type Treatment Note Visit Start Time 09:45 Visit Stop Time 10:30 Total Visit Minutes 45 Visit Number 7 PT-OP-B Current Condition Start: 08/26/18 08:14 Freq: Status: Active Protocol: Document 08/26/18 08:15 AMB (Rec: 08/26/18 17:34 AMB [email or web address]) Current Condition History of Current Condition Onset Date 3 months ago Current Complaints R hip pain, R knee pain, L thumb pain, B shoulder pain History of Current Condition Edouard reports recent onset hip pain is his main concern, but he is afraid he has arthritis all over his body. 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 It went away when he started community less, but now has returned insidiously. His right knee pain he describes as pain when he is walking when it will just hyperextend without warning. The thumb pain is with gripping things. The shoulder pain is with sleeping. 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 Prior Functional Status Baseline Function- ADL's Independent Baseline Function- Mobility Independent Current Functional Impairments (Reported) Functional Limitations- ADL's Modifies sitting to avoid hip pain, shortens step length to avoid knee pain, rolls over to avoid shoulder pain Personal Factors Other Personal Factors That May Effect history of cardiomyopathy, Therapy/Recovery carpal tunne and hernia repair surgeries PT-OP-C Subjective Start: 08/26/18 08:14 Freq: Status: Active Protocol: Document 12/04/18 09:45 AMB (Rec: 12/04/18 16:03 AMB [email or web address]) OP-PT Subjective Patient Comments Patient Comments Edouard states that he has been walking more, and has so far lost 10 pounds with that and diet changes, he has not gotten to the gym yet, so is hoping to do that in the next 2 weeks. PT-OP-J Posture/Palpation/Skin Start: 08/26/18 08:14 Freq: Status: Active Protocol: Document 08/26/18 08:15 AMB (Rec: 08/26/18 17:40 AMB [email or web address]) Palpation Assessment Location One Palpation Location hip Palpation Details denies tenderness to hip flexor, tender bilaterally at IT band but not more so on one side, tender at greater trochater with palpation, denies tenderness with palpation throughout knees PT-OP-K Range of Motion Start: 08/26/18 08:14 Freq: Status: Active Protocol: Document 08/26/18 08:15 AMB (Rec: 08/26/18 17:40 AMB [email or web address]) Hip Goniometric Range of Motion Hip Right Passive Flexion w/Knee Flexed 90 Internal Rotation 4 External Rotation 35 Left Passive Flexion w/Knee Flexed 100 Internal Rotation 15 External Rotation 35 PT-OP-L Special Tests Start: 08/26/18 17:40 Freq: Status: Active Protocol: Document 08/26/18 08:15 AMB (Rec: 08/26/18 17:41 AMB [email or web address]) Special Tests Hip Special Tests Scour Test Test Results positive on R PT-OP-M Strength Start: 08/26/18 08:14 Freq: Status: Active Protocol: Document 08/26/18 08:15 AMB (Rec: 08/26/18 17:40 AMB [email or web address]) Hip Strength Hip Manual Muscle Testing Right Flexion (L2) 5 Normal Extension (S1) 5 Normal Abduction 4+ Good+ External Rotation 4+ Good+ Internal Rotation 4+ Good+ Left Flexion (L2) 4+ Good+ Extension (S1) 4+ Good+ Abduction 4+ Good+ External Rotation 4+ Good+ Internal Rotation 4+ Good+ Knee Strength Knee Manual Muscle Testing Right Extension (L3) 4 Good Left Extension (L3) 5 Normal PT-OP-Q Treatments Start: 08/26/18 08:14 Freq: Status: Active Protocol: Document 12/04/18 09:45 AMB (Rec: 12/04/18 16:03 AMB [email or web address]) Gym Equipment Cable Column (Body Solid) Hip Abduction Resistance 30 Reps/Time 2x10 Shuttle Recovery Unilateral Squats Resistance 75 Shuttle Recovery Platform Stable Reps/Time 3x12 Therapeutic Exercises Supine Exercises 4 Supine Exercise Name hip flexor stretch Reps/Minutes 30x2 3 Supine Exercise Name hamstring stretch Reps/Minutes 30x2 Comments added IT band stretch Standing Exercises 2 Standing Exercise Name squats Reps/Minutes 2x10 Comments with left leg in front so more weightbearing on right PT-OP-T Assessment and Plan Start: 08/26/18 08:14 Freq: Status: Active Protocol: Document 12/04/18 09:45 AMB (Rec: 12/04/18 10:38 AMB [id number]) Physical Therapy Assessment Goals Two Impairment LE pain Short Term Goal (STG) Edouard will walk for 1 mile over hilly terrain without knee pain. 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 LTG Duration MET One Impairment hip ROM Short Term Goal (STG) Edouard will increase is hip internal rotation PROM to 10 degrees. 11/12: progress made but not yet met. STG Duration 4 weeks Skilled Nursing Goal (LTG) Edouard will increase his hip flexion PROM to 100 degrees without hip pain. met intermittently when pt not having a painful day. LTG Duration 8 weeks Assessment Summary Assessment Edouard tolerated an increase in gym equipment use today, although we will need to see how he tolerated it the day after as well. Follow up in a couple of weeks when he has had a chance to start his gym program. Physical Therapy Plan Next Visit Focus/Plan Next Note Type Treatment Note Next Visit Plan Follow up on gym program
--- NOTE | 2018-12-27 11:24 | PT.OTN ---
Current Diagnoses Unspecified osteoarthritis, unspecified site (12/27/18) Pain in right hip (12/27/18) Pain in right knee (12/27/18) Physical Therapy Treatment Note PT-OP-A Visit Information Start: 08/26/18 08:14 Freq: Status: Active Protocol: Document 12/27/18 07:30 AMB (Rec: 12/29/18 15:47 AMB [email or web address]) Out-Patient Physical Therapy Visit Information Visit Information Visit Type Discharge Summary Visit Start Time 07:30 Visit Stop Time 08:15 Total Visit Minutes 45 Visit Number 8 PT-OP-B Current Condition Start: 08/26/18 08:14 Freq: Status: Active Protocol: Document 08/26/18 08:15 AMB (Rec: 08/26/18 17:34 AMB [email or web address]) Current Condition History of Current Condition Onset Date 3 months ago Current Complaints R hip pain, R knee pain, L thumb pain, B shoulder pain History of Current Condition Edouard reports recent onset hip pain is his main concern, but he is afraid he has arthritis all over his body. 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 It went away when he started community less, but now has returned insidiously. His right knee pain he describes as pain when he is walking when it will just hyperextend without warning. The thumb pain is with gripping things. The shoulder pain is with sleeping. 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 Prior Functional Status Baseline Function- ADL's Independent Baseline Function- Mobility Independent Current Functional Impairments (Reported) Functional Limitations- ADL's Modifies sitting to avoid hip pain, shortens step length to avoid knee pain, rolls over to avoid shoulder pain Personal Factors Other Personal Factors That May Effect history of cardiomyopathy, Therapy/Recovery carpal tunne and hernia repair surgeries PT-OP-C Subjective Start: 08/26/18 08:14 Freq: Status: Active Protocol: Document 12/27/18 07:30 AMB (Rec: 12/29/18 15:47 AMB [email or web address]) OP-PT Subjective Patient Comments Patient Comments Edouard has not returned to a gym workout yet, but overall his pain is going well. PT-OP-J Posture/Palpation/Skin Start: 08/26/18 08:14 Freq: Status: Active Protocol: Document 08/26/18 08:15 AMB (Rec: 08/26/18 17:40 AMB [email or web address]) Palpation Assessment Location One Palpation Location hip Palpation Details denies tenderness to hip flexor, tender bilaterally at IT band but not more so on one side, tender at greater trochater with palpation, denies tenderness with palpation throughout knees PT-OP-K Range of Motion Start: 08/26/18 08:14 Freq: Status: Active Protocol: Document 12/27/18 07:30 AMB (Rec: 12/27/18 07:53 AMB [id number]) Hip Goniometric Range of Motion Hip Right Passive Flexion w/Knee Flexed 111 Internal Rotation 10 External Rotation 45 Left Passive Flexion w/Knee Flexed 112 Internal Rotation 20 External Rotation 50 PT-OP-L Special Tests Start: 08/26/18 17:40 Freq: Status: Active Protocol: Document 08/26/18 08:15 AMB (Rec: 08/26/18 17:41 AMB [email or web address]) Special Tests Hip Special Tests Scour Test Test Results positive on R PT-OP-M Strength Start: 08/26/18 08:14 Freq: Status: Active Protocol: Document 12/27/18 07:30 AMB (Rec: 12/27/18 07:53 AMB [id number]) Hip Strength Hip Manual Muscle Testing Right Flexion (L2) 4+ Good+ Extension (S1) 5 Normal Abduction 4+ Good+ External Rotation 4+ Good+ Internal Rotation 4+ Good+ Left Flexion (L2) 4+ Good+ Extension (S1) 5 Normal Abduction 4+ Good+ External Rotation 4+ Good+ Internal Rotation 4+ Good+ PT-OP-Q Treatments Start: 08/26/18 08:14 Freq: Status: Active Protocol: Document 12/27/18 07:30 AMB (Rec: 01/07/19 11:24 AMB [id number]) Gym Equipment Cable Column (Body Solid) Hip Abduction Resistance 30 Reps/Time 2x10 Shuttle Recovery Unilateral Squats Resistance 75 Shuttle Recovery Platform Stable Reps/Time 3x12 Therapeutic Exercises Supine Exercises 8 Supine Exercise Name supine IT band stretch Reps/Minutes 30x2 7 Supine Exercise Name bridge Reps/Minutes 2x10 4 Supine Exercise Name hip flexor stretch Reps/Minutes 30x2 3 Supine Exercise Name hamstring stretch Reps/Minutes 30x2 Comments added IT band stretch Standing Exercises 2 Standing Exercise Name squats Reps/Minutes 2x10 Comments with left leg in front so more weightbearing on right PT-OP-T Assessment and Plan Start: 08/26/18 08:14 Freq: Status: Active Protocol: Document 12/27/18 07:30 AMB (Rec: 01/07/19 11:18 AMB [email or web address]) Physical Therapy Assessment Goals Two Impairment LE pain Short Term Goal (STG) Edouard will walk for 1 mile over hilly terrain without knee pain. STG Duration MET Retirement Goal (LTG) Edouard will perform a car transfer without hip pain. LTG Duration MET One Impairment hip ROM Short Term Goal (STG) Edouard will increase is hip internal rotation PROM to 10 degrees. 1 STG Duration MET Head Bookkeeper Goal (LTG) Edouard will increase his hip flexion PROM to 100 degrees without hip pain. LTG Duration MET Assessment Summary Assessment Edouard has tolerated all exercise without an increase in pain. He has not started a gym workout routine, but not due to pain. Overall if he continues with his HEP, he should continue to be successfully mobile without increasing his pain. Physical Therapy Plan Discharge Physical Therapy Discharge Reasons Goals Met
== END 2019-01-31 10:13 ==
LOC: PHYS 07:30
PROVIDERS: PCP Family Medicine; Visit Provider Family Medicine
DX: M19.90 Unspecified osteoarthritis, unspecified site (principal); M25.551 Pain in right hip; M25.561 Pain in right knee
CPT/HCPCS: 97110; 97140; 97162

== ENCOUNTER → 2019-02-13 15:55 | Outpatient (CLI) | payer OTHER, SELFPAY ==
--- NOTE | 2019-02-13 15:55 | DI.US.S_ITS ---
PROCEDURE: US ABDOMEN LIMITED INDICATIONS: SWELLING /TENDERNESS INFERIOR TO XIPHOID, R/O MASS TECHNIQUE: Real-time focused scanning was performed of the abdomen, with image documentation. COMPARISON: None. FINDINGS: Ultrasound was performed in the area of interest. No abnormalities are identified inferior to xiphoid process. IMPRESSION: No sonographic abnormalities to correlate with clinical symptoms of swelling/tenderness. No mass is identified. If clinical symptoms persist or clinical suspicion for pathology is high, CT with contrast is suggested for further evaluation. Dictated by: Bishop Diaz M.D. on 02/13/2019 at 20:51 Approved by: Bishop Diaz M.D. on 02/13/2019 at 20:53
== END ==
PROVIDERS: PCP Family Medicine; Visit Provider Physician Assistant
DX: R10.10 Upper abdominal pain, unspecified (principal)
CPT/HCPCS: 76705

== ENCOUNTER → 2019-04-01 07:45 | Outpatient (CLI) | payer OTHER, SELFPAY ==
[2019-04-01 08:21] LABS: Add Manual Diff / Slide Review NO; Basophils Absolute Auto 100 /uL (0-100); Basophils Percent Auto 1.3 % (0-2); Eosinophils Absolute Auto 200 /uL (0-450); Eosinophils Percent Auto 3.2 % (2-4); Hematocrit 42.8 % (41-53); Hemoglobin 14.8 g/dL (13.5-17.5); Lymphocytes Absolute Auto 1800 /uL (1100-4500); Lymphocytes Percent Auto 28.4 % (25-40); Mean Corpuscular HGB Conc 34.5 % (30-36); Mean Corpuscular Hemoglobin 30.8 PG (26-34); Mean Corpuscular Volume 89.1 fL (80-100); Monocytes Absolute Auto 500 /uL (0-900); Neutrophils Absolute Auto 3700 /uL (1500-7000); Neutrophils Percent Auto 59.1 % (50-75); Platelet Count 174 X10^3/uL (150-400); Red Blood Cell Count 4.81 X10^6/uL (4.5-5.9); Red Cell Distribution Width 13.6 % (11.6-14.8); White Blood Cell Count 6.2 X10^3/uL (4.5-11.0)
[2019-04-01 08:32] LABS: Alanine Aminotransferase 17 IU/L (<50); Albumin Globulin Ratio 1.3 (1.0-2.8); Alkaline Phosphatase 72 U/L (38-126); Aspartate Aminotransferase 18 IU/L (17-59); BUN Creatinine Ratio 22.9 (6-22); Bilirubin Total 0.6 mg/dL (0.2-1.3); Blood Urea Nitrogen 16 mg/dL (9-20); Calcium 8.6 mg/dL (8.4-10.2); Carbon Dioxide 28 mmol/L (22-32); Chloride 104 mmol/L (98-107); Cholesterol 124 mg/dL (140-199); Estimated Glomerular Filt Rate > 60.0 mL/min (>60); Globulin 3.2 g/dL (1.7-4.1); Glucose 106 mg/dL (70-100); HDL Cholesterol 36 mg/dL (40-60); HEMOLYSIS < 15 (0-50); LDL Cholesterol Calculated 67 mg/dL (<100); Sodium 140 mmol/L (137-145); Total Protein 7.2 g/dL (6.3-8.2); Triglycerides 104 mg/dL (35-150)
== END ==
PROVIDERS: PCP Family Medicine; Referring Provider Nurse Practitioner; Visit Provider Nurse Practitioner
DX: Q21.1 Atrial septal defect (principal); I42.0 Dilated cardiomyopathy; I10 Essential (primary) hypertension; E78.5 Hyperlipidemia, unspecified; G47.33 Obstructive sleep apnea (adult) (pediatric)
CPT/HCPCS: 36415; 80053; 80061; 85025

== ENCOUNTER → 2019-09-08 10:45 | Outpatient (CLI) | payer OTHER, SELFPAY ==
[2019-09-08 11:57] LABS: Add Manual Diff / Slide Review NO; Basophils Absolute Auto 0 /uL (0-100); Basophils Percent Auto 0.9 % (0-2); Eosinophils Absolute Auto 100 /uL (0-450); Eosinophils Percent Auto 2.7 % (2-4); Hematocrit 41.7 % (41-53); Hemoglobin 14.5 g/dL (13.5-17.5); Lymphocytes Absolute Auto 1600 /uL (1100-4500); Lymphocytes Percent Auto 32.8 % (25-40); Mean Corpuscular HGB Conc 34.7 % (30-36); Mean Corpuscular Hemoglobin 30.9 PG (26-34); Mean Corpuscular Volume 89.1 fL (80-100); Monocytes Absolute Auto 500 /uL (0-900); Monocytes Percent Auto 9.8 % (3-14); Neutrophils Absolute Auto 2600 /uL (1500-7000); Neutrophils Percent Auto 53.8 % (50-75); Platelet Count 156 X10^3/uL (150-400); Red Blood Cell Count 4.68 X10^6/uL (4.5-5.9); Red Cell Distribution Width 13.9 % (11.6-14.8); White Blood Cell Count 4.8 X10^3/uL (4.5-11.0)
[2019-09-08 12:16] LABS: Alanine Aminotransferase 22 IU/L (<50); Albumin 4.2 g/dL (3.5-5.0); Albumin Globulin Ratio 1.6 (1.0-2.8); Alkaline Phosphatase 63 U/L (38-126); Aspartate Aminotransferase 22 IU/L (17-59); BUN Creatinine Ratio 24.6 (6-22); Bilirubin Total 0.7 mg/dL (0.2-1.3); Blood Urea Nitrogen 17 mg/dL (9-20); Carbon Dioxide 30 mmol/L (22-32); Chloride 104 mmol/L (98-107); Cholesterol 148 mg/dL (140-199); Estimated Glomerular Filt Rate > 60.0 mL/min (>60); Globulin 2.7 g/dL (1.7-4.1); Glucose 95 mg/dL (70-100); HDL Cholesterol 38 mg/dL (40-60); HEMOLYSIS < 15 (0-50); LDL Cholesterol Calculated 95 mg/dL (<100); Potassium 4.1 mmol/L (3.4-5.1); Sodium 138 mmol/L (137-145); Total Protein 6.9 g/dL (6.3-8.2); Triglycerides 75 mg/dL (35-150)
[2019-09-08 12:23] LABS: Hemoglobin A1C% w Est Avg Glu 5.2 % (4.0-6.0)
[2019-09-08 12:46] LABS: Prostate Specific Antigen 1.47 ng/mL (0.10-4.00)
== END ==
PROVIDERS: PCP Family Medicine; Referring Provider Family Medicine; Visit Provider Family Medicine
DX: I10 Essential (primary) hypertension (principal)
CPT/HCPCS: 36415; 80053; 80061; 83036; 84153; 85025